=== PATIENT | female | born 1940 | race Caucasian/White ===

== ENCOUNTER 2021-11-12 10:16 | Outpatient (RCR) | payer MEDICARE, BC, SELFPAY | END 2021-11-17 23:59 | disposition home or self-care (01) | LOC: SPT 10:16 | PROVIDERS: Referring Provider Internal Medicine; Visit Provider Internal Medicine | DX: H81.10 Benign paroxysmal vertigo, unspecified ear (principal) | CPT/HCPCS: 95992; 97162 ==

== ENCOUNTER 2021-11-18 06:00 | Outpatient (RCR) | payer MEDICARE, BC, SELFPAY | END 2021-12-15 23:59 | disposition home or self-care (01) | LOC: SPT 06:00 | PROVIDERS: Referring Provider Internal Medicine; Visit Provider Internal Medicine | DX: H81.10 Benign paroxysmal vertigo, unspecified ear (principal) | CPT/HCPCS: 95992 ==

== ENCOUNTER 2021-12-31 06:00 | Outpatient (RCR) | payer MEDICARE, BC, SELFPAY | END 2022-01-15 23:59 | disposition home or self-care (01) | LOC: GPT 06:00 | PROVIDERS: Referring Provider Internal Medicine; Visit Provider Internal Medicine | DX: R29.6 Repeated falls (principal) | CPT/HCPCS: 97110; 97112; 97162 ==

== ENCOUNTER 2022-01-16 06:00 | Outpatient (RCR) | payer MEDICARE, BC, SELFPAY | END 2022-02-14 23:59 | disposition home or self-care (01) | LOC: GPT 06:00 | PROVIDERS: Referring Provider Internal Medicine; Visit Provider Internal Medicine | DX: R29.6 Repeated falls (principal) | CPT/HCPCS: 97110; 97112 ==

== ENCOUNTER 2022-02-15 06:00 | Outpatient (RCR) | payer MEDICARE, BC, SELFPAY | END 2022-03-17 23:59 | disposition home or self-care (01) | LOC: GPT 06:00 | PROVIDERS: Referring Provider Internal Medicine; Visit Provider Internal Medicine | DX: R29.6 Repeated falls (principal) | CPT/HCPCS: 97110; 97112 ==

== ENCOUNTER 2022-03-18 06:00 | Outpatient (RCR) | payer MEDICARE, BC, SELFPAY | END 2022-03-19 23:59 | disposition home or self-care (01) | LOC: GPT 06:00 | PROVIDERS: Referring Provider Internal Medicine; Visit Provider Internal Medicine | DX: R26.81 Unsteadiness on feet (principal); R29.6 Repeated falls | CPT/HCPCS: 97110; 97112; 97535 ==